=== PATIENT | male | born 1940 | race Caucasian/White ===

== ENCOUNTER 2022-04-03 09:27 | Observation (INO) | payer MEDICARE, OTHER ==
--- NOTE | 2022-04-03 09:29 | ERPHSYRPT ---
- History of Present Illness Time Seen by Provider: 04/03/22 09:29 Source: patient, family Exam Limitations: no limitations Physician History: This is an 81-year-old white male patient who moved here at the beginning of March from [place] where he was living in a trailer. He said the trailer was above the septic tank region and was exposed to mold. Patient states his breathing has not been good for several weeks but has worsened over the last 2 to 3 weeks since he moved in with his daughter locally. He has no local physician. He has been prescribed an albuterol inhaler which she has not filled yet. He denies a diagnosis of asthma or COPD. He does not use home O2. He arrives from home to the emergency department with a room air oxygenation level of 88%. He denies chest pain. He denies abdominal pain. He has had no nausea vomiting or diarrhea symptoms. He has not had a fever. Timing/Duration: gradual onset, worse Activities at Onset: none Severity of Dyspnea-Max: moderate Severity of Dyspnea-Current: moderate Possible Cause: occasional episodes Modifying Factors: Improves With: exertion Associated Symptoms: wheezing, heart racing, No chest pain/discomfort Allergies/Adverse Reactions: Influenza Virus Vaccines Allergy (Verified 04/03/22 09:29) Home Medications: Albuterol Sulfate [Albuterol Sulfate Hfa] 2 puff PO Q4H PRN PRN 04/03/22 [History] Aspirin EC 81 mg [Ecotrin 81 mg] 1 tab PO DAILY 04/03/22 [History] Hydrocodone/Acetaminophen [Hydrocodone-Acetamin 10-325 mg] 1 tab PO QID 04/03/22 [History] Terazosin HCl 1 cap PO DAILY 04/03/22 [History] Trazodone HCl 50 mg [Desyrel 50 mg] 1 tab PO HS 04/03/22 [History] Travel Risk - International Travel Have you traveled outside of the country in past 3 weeks: No - Coronavirus Screening Are you exhibiting any of the following symptoms?: Yes Symptoms: Shortness of Breath Close contact with a COVID-19 positive Pt in past 14-21 Days: No - Review of Systems Constitutional: No Symptoms Eyes: No Symptoms Ears, Nose, & Throat: No Symptoms Respiratory: Dyspnea, Wheezing Cardiac: No Symptoms Abdominal/Gastrointestinal: No Symptoms Genitourinary Symptoms: No Symptoms Musculoskeletal: No Symptoms Skin: No Symptoms Neurological: No Symptoms Psychological: No Symptoms Endocrine: No Symptoms Hematologic/Lymphatic: No Symptoms Immunological/Allergic: No Symptoms All Other Systems: Reviewed and Negative - Past Medical History Pertinent Past Medical History: Yes - Past Surgical History Past Surgical History: Yes - Nursing Vital Signs Nursing Vital Signs: Initial Vital Signs Temperature 97.8 F 04/03/22 09:34 Pulse Rate 104 H 04/03/22 09:34 Respiratory Rate 29 H 04/03/22 09:34 Blood Pressure 196/82 04/03/22 09:34 O2 Sat by Pulse Oximetry 97 04/03/22 09:34 Pain Scale Pain Intensity 0 - Physical Exam General Appearance: mild distress, alert, anxiety Eye Exam: PERRL/EOMI, eyes nml inspection Ears, Nose, Throat Exam: hearing grossly normal, normal ENT inspection, normal pharynx Neck Exam: normal inspection, non-tender, supple, full range of motion Respiratory Exam: respiratory distress (Bilateral diffuse mild), airway intact, diminished breath sounds (Bilateral), wheezing, No chest tenderness Cardiovascular/Chest Exam: tachycardia Abdominal/Gastrointestinal Exam: soft, normal bowel sounds, No tenderness Rectal Exam: not done Extremity Exam: non-tender, normal range of motion, normal inspection, normal capillary refill, no calf tenderness, no pedal edema, pelvis stable Neurologic Exam: alert, oriented x 3, cooperative, optometry teacher II-XII nml as tested, normal mood/affect, nml cerebellar function, nml station & gait, sensation nml Skin Exam: normal color, warm, dry Lymphatic Exam: No adenopathy SpO2 Interpretation: normal O2 Delivery: Room Air - Course Nursing assessment & vital signs reviewed: Yes EKG Interpreted by Me: RATE ([id number]), Sinus Tach, NORMAL AXIS, NORMAL INTERVALS, NORMAL QRS, Non-specific ST Changes, Other (Abnormal inferior Q waves present. No acute ischemic changes. There are no comparison twelve-lead EKGs available) Ordered Tests: Active Orders 24 hr Category Date Time Status Parts Interpreter STAT Care 04/03/22 09:38 Active EKG-ER Only STAT Care 04/03/22 09:37 Active IV Insertion STAT Care 04/03/22 09:37 Active IV Insertion-2nd Peripheral STAT Care 04/03/22 11:02 Active Pulse Oximetry (ED) STAT Care 04/03/22 09:37 Active CHEST 1 VIEW (PORTABLE) Stat Exams 04/03/22 09:37 Completed CHEST WITH CONTRAST [CT] Stat Exams 04/03/22 10:28 Completed ABG [ARTERIAL BLOOD GASES] Stat Lab 04/03/22 11:06 Completed ARTERIAL BLOOD GASES Stat Lab 04/03/22 09:38 Completed BLOOD CULTURE Stat Lab 04/03/22 09:55 Received CBC W DIFF Stat Lab 04/03/22 09:37 Completed CMP Stat Lab 04/03/22 09:40 Completed CULTURE,SPUTUM Stat Lab 04/03/22 10:53 Ordered D-DIMER QUANTITATIVE Stat Lab 04/03/22 09:40 Completed Lactic Acid Stat Lab 04/03/22 09:38 Completed Lactic Acid Stat Lab 04/03/22 11:06 Completed NT PRO BNP Stat Lab 04/03/22 09:40 Completed PROTIME WITH INR Stat Lab 04/03/22 09:40 Completed TROPONIN Q4H Lab 04/03/22 09:40 Completed TROPONIN Q4H Lab 04/03/22 12:15 Completed TROPONIN Q4H Lab 04/03/22 17:45 Ordered BiPap/CPAP STAT RT 04/03/22 12:02 Active Medication Summary Discontinued Medications Generic Name Dose Route Start Last Admin Trade Name Freq PRN Reason Stop Dose Admin Albuterol Sulfate Confirm 04/03/22 10:57 Albuterol Sulfate 2.5 Mg/3 Ml Neb Administered 04/03/22 10:58 Dose 2.5 mg IH .STK-MED ONE Albuterol Sulfate 2.5 mg 04/03/22 11:00 04/03/22 12:03 Albuterol Sulfate 2.5 Mg/3 Ml Neb 04/03/22 11:01 2.5 mg STAT ONE Administration Albuterol/Ipratropium Confirm 04/03/22 09:34 Ipratropium/Albuterol Sulfate 3 Ml Ampul.Neb Administered 04/03/22 09:35 Dose 3 ml IH .STK-MED ONE Albuterol/Ipratropium 3 ml 04/03/22 09:35 04/03/22 09:35 Ipratropium/Albuterol Sulfate 3 Ml Ampul.Neb IH 04/03/22 09:36 3 ml STAT ONE Administration Methylprednisolone Sodium 0 mg 04/03/22 09:38 04/03/22 09:57 Succinate 125 mg/ Sterile IV 04/03/22 09:39 125 mg Water 2 ml STAT ONE Administration Methylprednisolone Sodium 0 mg 04/03/22 11:02 04/03/22 11:03 Succinate 125 mg/ Sterile IV 04/03/22 11:03 125 mg Water 2 ml STAT ONE Administration Furosemide 40 mg 04/03/22 12:05 04/03/22 12:26 Furosemide 40 Mg/4 Ml Vial IV 04/03/22 12:06 40 mg STAT ONE Administration Furosemide Confirm 04/03/22 12:25 Furosemide 40 Mg/4 Ml Vial Administered 04/03/22 12:26 Dose 40 mg .ROUTE .STK-MED ONE Meropenem 1 gm/ Sodium 100 mls @ 200 mls/hr 04/03/22 10:27 04/03/22 10:36 Chloride IV 04/03/22 10:56 200 mls/hr STAT ONE Administration Sodium Chloride 500 mls @ 500 mls/hr 04/03/22 10:29 04/03/22 10:41 Sodium Chloride 0.9% 500 Ml IV 04/03/22 11:28 Not Given .Q1H ONE Sodium Chloride 1,000 mls @ 999 mls/hr 04/03/22 10:30 04/03/22 11:39 Sodium Chloride 0.9% 1000 Ml IV 04/03/22 11:30 Infused .Q1H1M STA Infusion Sodium Chloride Confirm 04/03/22 10:33 Sodium Chloride 100ml Mini-Bag Plus Administered 04/03/22 10:34 Dose 100 mls @ ud IV .STK-MED ONE Sodium Chloride Confirm 04/03/22 10:33 Sodium Chloride 0.9% 1000 Ml Administered 04/03/22 10:34 Dose 1,000 mls @ ud .ROUTE .STK-MED ONE Meropenem Confirm 04/03/22 10:33 Meropenem 1 Gm Vial Administered 04/03/22 10:34 Dose 1 gm IV .STK-MED ONE Methylprednisolone Sodium Succinate Confirm 04/03/22 09:54 Methylprednis Sod Succ 125 Mg/2 Ml Vial Administered 04/03/22 09:55 Dose 125 mg .ROUTE .STK-MED ONE Methylprednisolone Sodium Succinate Confirm 04/03/22 11:01 Methylprednis Sod Succ 125 Mg/2 Ml Vial Administered 04/03/22 11:02 Dose 125 mg .ROUTE .STK-MED ONE Sterile Water Confirm 04/03/22 09:54 Water For Injection,Sterile 10 Ml Vial Administered 04/03/22 09:55 Dose 10 ml IJ .STK-MED ONE Sterile Water Confirm 04/03/22 11:01 Water For Injection,Sterile 10 Ml Vial Administered 04/03/22 11:02 Dose 10 ml IJ .STK-MED ONE Lab/Rad Data: Laboratory Result Diagrams 04/03/22 09:37 04/03/22 09:40 Laboratory Results 04/03/22 04/03/22 04/03/22 Range/Units 12:15 11:06 09:57 WBC (4.0-10.5) x10^3/uL RBC (4.1-5.6) x10^6/uL Hgb (12.5-18.0) g/dL Hct (42-50) % MCV (78-100) fL MCH (26-32) pg MCHC (32-36) g/dL RDW (11.5-14.0) % Plt Count (150-450) x10^3/uL MPV (7.5-11.0) fL Gran % (36.0-66.0) % Immature Gran % (Auto) (0.00-0.4) % Nucleat RBC Rel Count (0.00-0.1) % Eos # (Auto) (0-0.5) x10^3/uL Immature Gran # (Auto) (0.00-0.03) x10^3u/L Absolute Lymphs (auto) (1.0-4.6) x10^3/uL Absolute Monos (auto) (0.0-1.3) x10^3/uL Absolute Nucleated RBC (0.00-0.01) x10^3u/L Lymphocytes % (24.0-44.0) % Monocytes % (0.0-12.0) % Eosinophils % (0.00-5.0) % Basophils % (0.0-0.4) % Absolute Granulocytes (1.4-6.9) x10^3/uL Basophils # (0-0.4) x10^3/uL PT (9.4-12.5) SECONDS INR (0.8-3.0) D-Dimer (0.0-0.50) mg/L Puncture Site LEFT BRACHIAL pCO2 41 (35-45) mmHg pO2 157 H* (75-100) mmHg Base Excess -4.7 L (-2.0-2.0) O2 Saturation 98.2 (94-100) g/dF ABG pH 7.32 L (7.35-7.45) ABG HCO3 21.1 L (22-28) ABG O2 Sat (Measured) 99.3 (95-100) % Norman Test NOT APPLICABLE A-a Gradient 48 a/A Ratio 0.77 Hemoglobin 10.1 Carboxyhemoglobin 0.8 (0.0-6.9) % THgb Methemoglobin 0.3 L (1.4-1.5) % Potassium 4.3 (3.5-5.1) Temperature 37.0 C POC O2 Flow Rate 36 % Sodium (137-145) mmol/L Chloride (98-107) mmol/L Carbon Dioxide (22-30) mmol/L Anion Gap (5-15) MEQ/L BUN (9-20) mg/dL Creatinine (0.66-1.25) mg/dL Estimated GFR ML/MIN Glucose (74-106) mg/dL Lactic Acid 2.0 (0.4-2.0) Calcium (8.4-10.2) mg/dL Total Bilirubin (0.2-1.3) mg/dL AST (17-59) U/L ALT (0-50) U/L Alkaline Phosphatase (38-126) U/L Troponin I 0.056 H* (0.000-0.034) ng/mL NT-Pro-B Natriuret Pep (0-1800) pg/mL Serum Total Protein (6.3-8.2) g/dL Albumin (3.5-5.0) g/dL Influenza Type A Ag NEGATIVE (NEGATIVE) Influenza Type B Ag NEGATIVE (NEGATIVE) RSV (PCR) NEGATIVE (Negative) SARS-CoV-2 (PCR) NEGATIVE (NEGATIVE) 04/03/22 04/03/22 04/03/22 Range/Units 09:40 09:40 09:40 WBC (4.0-10.5) x10^3/uL RBC (4.1-5.6) x10^6/uL Hgb (12.5-18.0) g/dL Hct (42-50) % MCV (78-100) fL MCH (26-32) pg MCHC (32-36) g/dL RDW (11.5-14.0) % Plt Count (150-450) x10^3/uL MPV (7.5-11.0) fL Gran % (36.0-66.0) % Immature Gran % (Auto) (0.00-0.4) % Nucleat RBC Rel Count (0.00-0.1) % Eos # (Auto) (0-0.5) x10^3/uL Immature Gran # (Auto) (0.00-0.03) x10^3u/L Absolute Lymphs (auto) (1.0-4.6) x10^3/uL Absolute Monos (auto) (0.0-1.3) x10^3/uL Absolute Nucleated RBC (0.00-0.01) x10^3u/L Lymphocytes % (24.0-44.0) % Monocytes % (0.0-12.0) % Eosinophils % (0.00-5.0) % Basophils % (0.0-0.4) % Absolute Granulocytes (1.4-6.9) x10^3/uL Basophils # (0-0.4) x10^3/uL PT 10.8 (9.4-12.5) SECONDS INR 1.02 (0.8-3.0) D-Dimer 2.45 H* (0.0-0.50) mg/L Puncture Site pCO2 (35-45) mmHg pO2 (75-100) mmHg Base Excess (-2.0-2.0) O2 Saturation (94-100) g/dF ABG pH (7.35-7.45) ABG HCO3 (22-28) ABG O2 Sat (Measured) (95-100) % Norman Test A-a Gradient a/A Ratio Hemoglobin Carboxyhemoglobin (0.0-6.9) % THgb Methemoglobin (1.4-1.5) % Potassium 4.3 (3.5-5.1) Temperature C POC O2 Flow Rate % Sodium 137 (137-145) mmol/L Chloride 105 (98-107) mmol/L Carbon Dioxide 21 L (22-30) mmol/L Anion Gap 16.2 H (5-15) MEQ/L BUN 25 H (9-20) mg/dL Creatinine 1.18 (0.66-1.25) mg/dL Estimated GFR > 60.0 ML/MIN Glucose 114 H (74-106) mg/dL Lactic Acid (0.4-2.0) Calcium 8.4 (8.4-10.2) mg/dL Total Bilirubin 0.60 (0.2-1.3) mg/dL AST 40 (17-59) U/L ALT 24 (0-50) U/L Alkaline Phosphatase 72 (38-126) U/L Troponin I 0.060 H* (0.000-0.034) ng/mL NT-Pro-B Natriuret Pep 493 (0-1800) pg/mL Serum Total Protein 8.1 (6.3-8.2) g/dL Albumin 4.4 (3.5-5.0) g/dL Influenza Type A Ag (NEGATIVE) Influenza Type B Ag (NEGATIVE) RSV (PCR) (Negative) SARS-CoV-2 (PCR) (NEGATIVE) 04/03/22 04/03/22 Range/Units 09:38 09:37 WBC 9.3 (4.0-10.5) x10^3/uL RBC 4.39 (4.1-5.6) x10^6/uL Hgb 10.0 L (12.5-18.0) g/dL Hct 33.5 L (42-50) % MCV 76.3 L (78-100) fL MCH 22.8 L (26-32) pg MCHC 29.9 L (32-36) g/dL RDW 17.2 H (11.5-14.0) % Plt Count 245 (150-450) x10^3/uL MPV 10.5 (7.5-11.0) fL Gran % 63.3 (36.0-66.0) % Immature Gran % (Auto) 0.4 (0.00-0.4) % Nucleat RBC Rel Count 0.0 (0.00-0.1) % Eos # (Auto) 1.28 H (0-0.5) x10^3/uL Immature Gran # (Auto) 0.04 H (0.00-0.03) x10^3u/L Absolute Lymphs (auto) 1.34 (1.0-4.6) x10^3/uL Absolute Monos (auto) 0.69 (0.0-1.3) x10^3/uL Absolute Nucleated RBC 0.00 (0.00-0.01) x10^3u/L Lymphocytes % 14.5 L (24.0-44.0) % Monocytes % 7.5 (0.0-12.0) % Eosinophils % 13.8 H (0.00-5.0) % Basophils % 0.5 (0.0-0.4) % Absolute Granulocytes 5.86 (1.4-6.9) x10^3/uL Basophils # 0.05 (0-0.4) x10^3/uL PT (9.4-12.5) SECONDS INR (0.8-3.0) D-Dimer (0.0-0.50) mg/L Puncture Site LEFT RADIAL pCO2 41 (35-45) mmHg pO2 120 H (75-100) mmHg Base Excess -4.1 L (-2.0-2.0) O2 Saturation 97.4 (94-100) g/dF ABG pH 7.33 L (7.35-7.45) ABG HCO3 21.6 L (22-28) ABG O2 Sat (Measured) 98.4 (95-100) % Norman Test YES A-a Gradient 85 a/A Ratio 0.59 Hemoglobin 10.7 Carboxyhemoglobin 0.6 (0.0-6.9) % THgb Methemoglobin 0.4 L (1.4-1.5) % Potassium 4.2 (3.5-5.1) Temperature 37.0 C POC O2 Flow Rate 36 % Sodium (137-145) mmol/L Chloride (98-107) mmol/L Carbon Dioxide (22-30) mmol/L Anion Gap (5-15) MEQ/L BUN (9-20) mg/dL Creatinine (0.66-1.25) mg/dL Estimated GFR ML/MIN Glucose (74-106) mg/dL Lactic Acid 3.1 H (0.4-2.0) Calcium (8.4-10.2) mg/dL Total Bilirubin (0.2-1.3) mg/dL AST (17-59) U/L ALT (0-50) U/L Alkaline Phosphatase (38-126) U/L Troponin I (0.000-0.034) ng/mL NT-Pro-B Natriuret Pep (0-1800) pg/mL Serum Total Protein (6.3-8.2) g/dL Albumin (3.5-5.0) g/dL Influenza Type A Ag (NEGATIVE) Influenza Type B Ag (NEGATIVE) RSV (PCR) (Negative) SARS-CoV-2 (PCR) (NEGATIVE) - Progress Progress: improved, re-examined Air Movement: fair Progress Note: 04/03/22 10:22 Chest x-ray shows mild left base interstitial alveolar opacities with tiny effusion. 04/03/22 11:04 Medical decision making: This patient's symptoms of shortness of breath suddenly worsened. His oxygenation on 4 L did not change much but he became a little more tachycardic. And symptomatically he felt more short of breath. Repeat twelve-lead EKG shows sinus tachycardia at 112. There is borderline ST depression in anterior lateral leads which is unchanged from the prior EKG. The Q waves have resolved and there is borderline prolonged QT interval present. There is no evidence of ST elevation. Patient does not complain of any chest pain. We repeated the DuoNeb and during the treatment his heart rate came down into the 80s and symptomatically his symptoms have improved. We are repeating a dose of 125 mg of intravenous Solu-Medrol. 04/03/22 12:03 CTA of chest is negative for pulmonary embolus. There is no evidence of acute cardiopulmonary abnormalities. There is evidence of extensive pulmonary emphysema. 04/03/22 13:23 Medical decision making: This patient was hypoxic when he came into the hospital. His CTA shows extensive pulmonary emphysema. I think his cardiac enzymes are secondary more to cardiac strain rather than coronary artery disease and ischemia. I spoke with Dr. Guerrero who is covering for unassigned patients. He accepts him for placement in observation in the hospital. We will place him in observation on telemetry and provide him with nebulizer treatments, Solu- Medrol intravenously, intravenous antibiotics and repeat labs in the morning. I will also put him on low-dose Lovenox. Blood Culture(s) Obtained: Yes Antibiotics given: Yes Discussed with : Mariela Counseled pt/family regarding: lab results, diagnosis, rad results - Departure Departure Disposition: Transfer Clinical Impression: Sepsis, Pulmonary infiltrate in left lung on chest x-ray, Sinus tachycardia, Elevated troponin, Hypoxia, COPD exacerbation Condition: Fair Critical Care Time: Yes Critical Care Time(excluding separately billable procedures): Critical 30-74 mins (40 minutes) Referrals: DOCTOR,NO FAMILY [Primary Care Provider] - Follow up/PCP as directed Instructions: Chronic Obstructive Pulmonary Disease
[2022-04-03] MEDS ORDERED: DUONEB 0.5-3 MG/3 ml Neb IH ONE ×2 (09:34→09:35)
[2022-04-03] MEDS ORDERED: solu-MEDROL 125 MG, Sterile H2O 10 ml 2 ML IV ONE ×4 (09:38→11:02)
[2022-04-03 09:40] LABS: A-aADO2 85; ABG HEMOGLOBIN 10.7; ABG POTASSIUM 4.2 (3.5-5.1); ABG SITE LEFT RADIAL; ALLEN TEST OK? YES; ARTERIAL BLD GAS O2 SATURATION 98.4 % (95-100); ARTERIAL BLOOD GAS BASE EXCESS -4.1 (-2.0-2.0); ARTERIAL BLOOD GAS FIO2 36 %; ARTERIAL BLOOD GAS PCO2 41 mmHg (35-45); ARTERIAL BLOOD GAS PO2 120 mmHg (75-100); ARTERIAL BLOOD GAS pH 7.33 (7.35-7.45); CARBOXYHEMOGLOBIN 0.6 % THgb (0.0-6.9); HCO3- 21.6 (22-28); HGB O2 SAT 97.4 g/dF (94-100); Lactic Acid 3.1 (0.4-2.0); Methhemoglobin 0.4 % (1.4-1.5)
[2022-04-03] MEDS ORDERED: Sterile H2O 10 ml IJ ONE ×2 (09:54→11:01)
[2022-04-03] MEDS ORDERED: solu-MEDROL ONE ×2 (09:54→11:01)
[2022-04-03 09:58] LABS: Absolute Neutrophil Ct (ANC) 5.86 x10^3/uL (1.4-6.9); Basophil (Absolute #) 0.05 x10^3/uL (0-0.4); Eosinophil % 13.8 % (0.00-5.0); Eosinophil (Absolute #) 1.28 x10^3/uL (0-0.5); Hematocrit 33.5 % (42-50); Lymphocyte (Absolute #) 1.34 x10^3/uL (1.0-4.6); Lymphocytes % 14.5 % (24.0-44.0); Mean Cell Volume 76.3 fL (78-100); Mean Corpuscular Hemoglobin 22.8 pg (26-32); Mean Corpuscular Hgb Concent. 29.9 g/dL (32-36); Mean Platelet Volume 10.5 fL (7.5-11.0); Monocyte (Absolute #) 0.69 x10^3/uL (0.0-1.3); Monocytes % 7.5 % (0.0-12.0); Neutrophil % 63.3 % (36.0-66.0); Platelet Count 245 x10^3/uL (150-450); Red Blood Count 4.39 x10^6/uL (4.1-5.6); Red Cell Distribution Width 17.2 % (11.5-14.0); White Blood Count 9.3 x10^3/uL (4.0-10.5)
--- NOTE | 2022-04-03 10:19 | XRAY ---
Indication: Cough and short of breath. Comparison: None Portable chest demonstrates mild left base interstitial alveolar opacities with tiny effusion. Left infrahilar sub-some atelectasis/scarring and tiny scattered calcified granulomas. Heart not enlarged. Bony thorax intact with osteopenia and cervical thoracic junction fusion hardware.
[2022-04-03 10:20] LABS: INR 1.02 (0.8-3.0); PROTIME 10.8 SECONDS (9.4-12.5)
[2022-04-03 10:21] LABS: ALBUMIN 4.4 g/dL (3.5-5.0); ALKALINE PHOSPHATASE 72 U/L (38-126); ANION GAP 16.2 MEQ/L (5-15); BLOOD UREA NITROGEN 25 mg/dL (9-20); CHLORIDE 105 mmol/L (98-107); Calcium 8.4 mg/dL (8.4-10.2); Carbon Dioxide 21 mmol/L (22-30); Creatinine 1 1.18 mg/dL (0.66-1.25); EST GLOMERULAR FILTRATION RATE > 60.0 ML/MIN; Glucose 114 mg/dL (74-106); NT PRO BNP 493 pg/mL (0-1800); Potassium 4.3 mmol/L (3.5-5.1); SGOT/AST 40 U/L (17-59); SGPT/ALT 24 U/L (0-50); SODIUM 137 mmol/L (137-145); Total Protein 8.1 g/dL (6.3-8.2)
[2022-04-03 10:24] LABS: D-DIMER QUANTITATIVE 2.45 mg/L (0.0-0.50)
[2022-04-03] MEDS ORDERED: Merrem 1 GM in Sodium Chloride 100ML MINI-BAG PLUS 100 ML IV ONE (10:27)
[2022-04-03] MEDS ORDERED: Sodium Chloride 0.9% 500 ML 500 ML IV ONE (10:29)
[2022-04-03] MEDS ORDERED: Sodium Chloride 0.9% 1000 ML 1,000 ML IV STA (10:30)
[2022-04-03] MEDS ORDERED: Merrem IV ONE (10:33)
[2022-04-03] MEDS ORDERED: Sodium Chloride 100ML MINI-BAG PLUS 100 ML IV ONE (10:33)
[2022-04-03] MEDS ORDERED: Sodium Chloride 0.9% 1000 ML 1,000 ML ONE (10:33)
[2022-04-03 10:39] LABS: INFLUENZA A NEGATIVE (NEGATIVE); INFLUENZA B NEGATIVE (NEGATIVE); RESPIRATORY SYNCTIAL VIRUS NEGATIVE (Negative); SARS-CoV-2 Xpert Express NEGATIVE (NEGATIVE)
[2022-04-03] MEDS ORDERED: PROVENTIL 2.5 MG/3 ML NEB IH ONE ×2 (10:57→11:00)
[2022-04-03 11:07] LABS: A-aADO2 48; ABG HEMOGLOBIN 10.1; ABG POTASSIUM 4.3 (3.5-5.1); ARTERIAL BLD GAS O2 SATURATION 99.3 % (95-100); ARTERIAL BLOOD GAS BASE EXCESS -4.7 (-2.0-2.0); ARTERIAL BLOOD GAS FIO2 36 %; ARTERIAL BLOOD GAS PCO2 41 mmHg (35-45); ARTERIAL BLOOD GAS PO2 157 mmHg (75-100); ARTERIAL BLOOD GAS pH 7.32 (7.35-7.45); CARBOXYHEMOGLOBIN 0.8 % THgb (0.0-6.9); HCO3- 21.1 (22-28); HGB O2 SAT 98.2 g/dF (94-100); Methhemoglobin 0.3 % (1.4-1.5)
[2022-04-03 11:08] LABS: ABG SITE LEFT BRACHIAL
--- NOTE | 2022-04-03 11:56 | XRAY ---
Indication: Short of breath. Elevated d-dimer. Pulmonary was. Multiple contiguous axial images obtained through the chest using 80 cc Isovue 370 contrast and pulmonary embolus protocol. Comparison: None Good opacification of the pulmonary arteries to include the lumbar and segmental branches. No pulmonary embolus. Heart not enlarged. Aorta is mildly arteriosclerotic without aneurysm/dissection. Tiny right hilar calcified nodes. No pathologic mediastinal/hilar lymphadenopathy. Small hiatal hernia. Lungs demonstrates diffuse pulmonary emphysema with scattered bilateral peripheral fibrosis/scarring and bibasilar subpleural cystic changes. A few right lung calcified granulomas. No suspicious pulmonary mass, infiltrate, or effusion. Bony thorax intact with osteopenia and moderate degenerative changes throughout the spine. Limited upper abdomen including adrenal glands are unremarkable. Impression: 1. Negative pulmonary embolus. No acute cardiopulmonary abnormalities. 2. Extensive pulmonary emphysema with scattered fibrosis/scarring and old granulomatous disease. 3. Incidental osteopenia, multilevel degenerative spondylosis, and small hiatal hernia.
[2022-04-03] MEDS ORDERED: Lasix 40 MG/4 ML IV ONE (12:05)
[2022-04-03] MEDS ORDERED: Lasix 40 MG/4 ML ONE (12:25)
[2022-04-03] MEDS ORDERED: Zofran 4 MG/2 ML VIAL IV PRN (14:22)
[2022-04-03] MEDS ORDERED: TYLENOL 325 MG PO PRN (14:22)
[2022-04-03] MEDS ORDERED: VENTOLIN COMMON CANISTER IH PRN (15:35)
[2022-04-03] MEDS: Zithromax 500 MG/ 250 ML NaCl Premix 500 MG/250 ML IVPB IV SCH (16:23)
[2022-04-03] MEDS: ROCEPHIN 1 Gm-D5w 50 ml Bag** 1 G/50 ML IVPB IV SCH (16:23)
[2022-04-03] MEDS: HYDROCODONE-ACETAMIN 10-325 MG PO SCH ×2 (16:23→21:09)
[2022-04-03] MEDS: ENOXAPARIN SODIUM SQ SCH (16:23)
[2022-04-03] MEDS: Tums EX 750 MG PO PRN (17:39)
[2022-04-03] MEDS: DUONEB 0.5-3 MG/3 ml Neb IH SCH (18:56)
[2022-04-03] MEDS: DESYREL 50 MG PO SCH (21:09)
[2022-04-03] MEDS: solu-MEDROL 80 MG, Sterile H2O 10 ml 2 ML IV SCH ×2 (21:10)
[2022-04-04] MEDS: DUONEB 0.5-3 MG/3 ml Neb IH SCH ×4 (01:21→17:51)
[2022-04-04 04:55] LABS: Absolute Neutrophil Ct (ANC) 5.52 x10^3/uL (1.4-6.9); Basophil (Absolute #) 0.01 x10^3/uL (0-0.4); Eosinophil % 0.2 % (0.00-5.0); Eosinophil (Absolute #) 0.01 x10^3/uL (0-0.5); Hematocrit 30.6 % (42-50); Lymphocyte (Absolute #) 0.76 x10^3/uL (1.0-4.6); Lymphocytes % 11.5 % (24.0-44.0); Mean Cell Volume 76.7 fL (78-100); Mean Corpuscular Hemoglobin 22.6 pg (26-32); Mean Corpuscular Hgb Concent. 29.4 g/dL (32-36); Mean Platelet Volume 10.2 fL (7.5-11.0); Monocyte (Absolute #) 0.28 x10^3/uL (0.0-1.3); Monocytes % 4.2 % (0.0-12.0); Neutrophil % 83.4 % (36.0-66.0); Platelet Count 234 x10^3/uL (150-450); Red Blood Count 3.99 x10^6/uL (4.1-5.6); Red Cell Distribution Width 17.6 % (11.5-14.0); White Blood Count 6.6 x10^3/uL (4.0-10.5)
[2022-04-04] MEDS: solu-MEDROL 80 MG, Sterile H2O 10 ml 2 ML IV SCH ×6 (05:11→21:02)
[2022-04-04 05:26] LABS: ALBUMIN 4.1 g/dL (3.5-5.0); ANION GAP 11.1 MEQ/L (5-15); BILIRUBIN,TOTAL 0.3 mg/dL (0.2-1.3); Calcium 8.4 mg/dL (8.4-10.2); Creatinine 1 1.33 mg/dL (0.66-1.25); EST GLOMERULAR FILTRATION RATE 54.6 ML/MIN; Potassium 4.5 mmol/L (3.5-5.1); Total Protein 7.4 g/dL (6.3-8.2)
[2022-04-04] MEDS: Zithromax 500 MG/ 250 ML NaCl Premix 500 MG/250 ML IVPB IV SCH (08:45)
[2022-04-04] MEDS ORDERED: TERAZOSIN HCL 2 MG PO SCH (10:00)
[2022-04-04] MEDS ORDERED: HYTRIN 1 MG PO SCH (10:00)
[2022-04-04] MEDS ORDERED: ECOTRIN 81 MG PO SCH (10:00)
[2022-04-04] MEDS: ENOXAPARIN SODIUM SQ SCH (10:56)
[2022-04-04] MEDS: ROCEPHIN 1 Gm-D5w 50 ml Bag** 1 G/50 ML IVPB IV SCH (10:56)
[2022-04-04] MEDS: HYDROCODONE-ACETAMIN 10-325 MG PO SCH ×4 (10:56→21:02)
--- NOTE | 2022-04-04 11:56 | PCM.HP ---
History of Present Illness - Chief Complaint Chief Complaint: sepsis History of Present Illness: is a 81 year old male pt with no local MD and PMHx COPD who was admitted through ER with sepsis, PNA ([place]), COPD exac, and elevated troponin. SOB had increased in ER; He was given solumedrol 125 x 2 and duonebs with improvement. Initial troponin was elevated but has trended somewhat down. CT chest neg for PE, but with extensive emphysema. Per ER note pt not aware of COPD dx. Had been prescribed albuterol at home but apparently had not filled it. Pt is here with daughter and son in law today. He moved here this month from [place]; there was some concern about mold at his previous home. He has been sick about 4-6 weeks, but really short of breath for the past 2days. SOB even at rest; prod yellow sputum. Subj fevers/sweats. Presyncope x 2-3. He was given IV lasix in ER with good result. BNP was 493 at admission and 1690 today. - Review of Systems Constitutional: Fever Respiratory: Cough, Short Of Breath Cardiac: Edema (better after lasix) Abdominal/Gastrointestinal: Abdominal Pain (with coughing, RLQ, 10/10), Diarrhea (in ER after taking some meds) Neurological: Dizziness, Other (presyncope) Medications & Allergies Home Medications: Home Medication List Albuterol Sulfate [Albuterol Sulfate Hfa] 2 puff PO Q4H PRN PRN 04/03/22 [History Confirmed 04/03/22] Aspirin EC 81 mg [Ecotrin 81 mg] 1 tab PO DAILY 04/03/22 [History Confirmed 04/03/22] Hydrocodone/Acetaminophen [Hydrocodone-Acetamin 10-325 mg] 1 tab PO QID 04/03/22 [History Confirmed 04/03/22] Terazosin HCl 1 cap PO DAILY 04/03/22 [History Confirmed 04/03/22] Trazodone HCl 50 mg [Desyrel 50 mg] 1 tab PO HS 04/03/22 [History Confirmed 04/03/22] Allergies/Adverse Reactions: Allergies Allergy/AdvReac Type Severity Reaction Status Date / Time Influenza Virus Vaccines Allergy Verified 04/03/22 09:29 - Past Medical History Past Medical History: Yes Neurological History: No Pertinent History ENT History: No Pertinent History Cardiac History: Hypertension Respiratory History: Other Endocrine Medical History: No Pertinent History Musculoskelatal History: No Pertinent History GI Medical History: Hernia History: No Pertinent History Pyscho-Social History: No Pertinent History Male Reproductive Disorders: Prostate Problems Comment: Skin CA, insomnia, exposure to mold and sewage in previous living conditions - Past Surgical History Past Surgical History: Yes Neuro Surgical History: No Pertinent History Cardiac History: No Pertinent History, Cardiac Stent Respiratory Surgery: No Pertinent History Genitourinary Surgical Hx: No Pertinent History Musculskeletal Surgical Hx: No Pertinent History Male Surgical History: No Pertinent History Other Surgical History: Back sugery with hardware placed - Social History Smoking Status: Former smoker Exposure to second hand smoke: No Alcohol: None Drug Use: none - Physical Exam Vital Signs: Vital Signs - 24 hr Temp Pulse Resp BP Pulse Ox 04/04/22 08:00 97.5 F 78 18 95 04/04/22 06:57 88 18 99 04/04/22 04:00 97.7 F 95 H 20 104/53 97 04/04/22 01:23 97 H 20 96 04/03/22 23:43 98.5 F 78 22 108/55 98 04/03/22 20:00 100.4 F 89 24 116/56 98 04/03/22 19:03 98 H 24 95 04/03/22 14:33 97.3 F 107 H 20 142/68 96 04/03/22 14:22 100 H 20 96 04/03/22 13:02 97 H 21 148/116 99 04/03/22 12:18 92 H 20 169/89 99 04/03/22 12:02 110 H 32 H 97 General Appearance: severe distress (with coughing, d/t RLQ pain; otherwise not in distress), obese Neurologic Exam: oriented x 3, cooperative Ears, Nose, Throat Exam: moist mucous membranes Neck Exam: normal inspection Respiratory Exam: diminished breath sounds (fair air exchange), No crackles/rales, No rhonchi, No wheezing Cardiovascular Exam: regular rate/rhythm, normal heart sounds, No murmur Gastrointestinal/Abdomen Exam: soft, normal bowel sounds, tenderness (RLQ), No mass, No guarding, No rebound, No hernia Back Exam: normal inspection, No rash Extremity Exam: normal inspection, No pedal edema, No swelling Skin Exam: normal color, warm, dry, No rash Results - Labs Lab/Micro Results: Lab Results-Last 24 Hours 04/03/22 04/03/22 04/04/22 Range/Units 12:15 18:10 04:30 WBC 6.6 (4.0-10.5) x10^3/uL RBC 3.99 L (4.1-5.6) x10^6/uL Hgb 9.0 L (12.5-18.0) g/dL Hct 30.6 L (42-50) % MCV 76.7 L (78-100) fL MCH 22.6 L (26-32) pg MCHC 29.4 L (32-36) g/dL RDW 17.6 H (11.5-14.0) % Plt Count 234 (150-450) x10^3/uL MPV 10.2 (7.5-11.0) fL Gran % 83.4 H (36.0-66.0) % Immature Gran % (Auto) 0.5 H (0.00-0.4) % Nucleat RBC Rel Count 0.0 (0.00-0.1) % Eos # (Auto) 0.01 (0-0.5) x10^3/uL Immature Gran # (Auto) 0.03 (0.00-0.03) x10^3u/L Absolute Lymphs (auto) 0.76 L (1.0-4.6) x10^3/uL Absolute Monos (auto) 0.28 (0.0-1.3) x10^3/uL Absolute Nucleated RBC 0.00 (0.00-0.01) x10^3u/L Lymphocytes % 11.5 L (24.0-44.0) % Monocytes % 4.2 (0.0-12.0) % Eosinophils % 0.2 (0.00-5.0) % Basophils % 0.2 (0.0-0.4) % Absolute Granulocytes 5.52 (1.4-6.9) x10^3/uL Basophils # 0.01 (0-0.4) x10^3/uL Sodium (137-145) mmol/L Potassium (3.5-5.1) mmol/L Chloride (98-107) mmol/L Carbon Dioxide (22-30) mmol/L Anion Gap (5-15) MEQ/L BUN (9-20) mg/dL Creatinine (0.66-1.25) mg/dL Estimated GFR ML/MIN Glucose (74-106) mg/dL Calcium (8.4-10.2) mg/dL Total Bilirubin (0.2-1.3) mg/dL AST (17-59) U/L ALT (0-50) U/L Alkaline Phosphatase (38-126) U/L Troponin I 0.056 H* 0.056 H* (0.000-0.034) ng/mL NT-Pro-B Natriuret Pep (0-1800) pg/mL Serum Total Protein (6.3-8.2) g/dL Albumin (3.5-5.0) g/dL 04/04/22 Range/Units 04:30 WBC (4.0-10.5) x10^3/uL RBC (4.1-5.6) x10^6/uL Hgb (12.5-18.0) g/dL Hct (42-50) % MCV (78-100) fL MCH (26-32) pg MCHC (32-36) g/dL RDW (11.5-14.0) % Plt Count (150-450) x10^3/uL MPV (7.5-11.0) fL Gran % (36.0-66.0) % Immature Gran % (Auto) (0.00-0.4) % Nucleat RBC Rel Count (0.00-0.1) % Eos # (Auto) (0-0.5) x10^3/uL Immature Gran # (Auto) (0.00-0.03) x10^3u/L Absolute Lymphs (auto) (1.0-4.6) x10^3/uL Absolute Monos (auto) (0.0-1.3) x10^3/uL Absolute Nucleated RBC (0.00-0.01) x10^3u/L Lymphocytes % (24.0-44.0) % Monocytes % (0.0-12.0) % Eosinophils % (0.00-5.0) % Basophils % (0.0-0.4) % Absolute Granulocytes (1.4-6.9) x10^3/uL Basophils # (0-0.4) x10^3/uL Sodium 139 (137-145) mmol/L Potassium 4.5 (3.5-5.1) mmol/L Chloride 105 (98-107) mmol/L Carbon Dioxide 28 (22-30) mmol/L Anion Gap 11.1 (5-15) MEQ/L BUN 31 H (9-20) mg/dL Creatinine 1.33 H (0.66-1.25) mg/dL Estimated GFR 54.6 ML/MIN Glucose 162 H (74-106) mg/dL Calcium 8.4 (8.4-10.2) mg/dL Total Bilirubin 0.30 (0.2-1.3) mg/dL AST 38 (17-59) U/L ALT 25 (0-50) U/L Alkaline Phosphatase 65 (38-126) U/L Troponin I (0.000-0.034) ng/mL NT-Pro-B Natriuret Pep 1690 (0-1800) pg/mL Serum Total Protein 7.4 (6.3-8.2) g/dL Albumin 4.1 (3.5-5.0) g/dL Microbiology 04/03/22 10:53 Gram Stain - Final Sputum - Expectorant - Radiology Impressions Radiology Exams & Impressions: Radiology Procedures Category Date Time Status CHEST 1 VIEW (PORTABLE) Stat Exams 04/03/22 09:37 Completed CHEST WITH CONTRAST [CT] Stat Exams 04/03/22 10:28 Completed - Other Procedures and Tests Respiratory Therapy 04/03/22 12:02 BiPap/CPAP ROUTINE 04/03/22 15:28 Oxygen Nasal Cannula 4 lpm Assessment/Plan (1) Sepsis Current Visit: Yes Status: Acute Qualifiers: Sepsis type: sepsis due to unspecified organism Sepsis acute organ dysfunction status: without acute organ dysfunction Qualified Code(s): A41.9 - Sepsis, unspecified organism Assessment & Plan: Had fever to 100.4 here, initial HR 110s and RR 32 (now 95 and 20). On IV fluids; cautiosly because of CHF component (elevated BNP today). (2) Pneumonia Current Visit: Yes Status: Acute Qualifiers: Pneumonia type: due to unspecified organism Laterality: left Lung location: lower lobe of lung Qualified Code(s): J18.9 - Pneumonia, unspecified organism Assessment & Plan: On zithromax and rocephin. Code(s): J18.9 - PNEUMONIA, UNSPECIFIED ORGANISM (3) Abdominal pain Current Visit: Yes Status: Acute Qualifiers: Abdominal location: right lower quadrant Qualified Code(s): R10.31 - Right lower quadrant pain Assessment & Plan: Due to cough. Will try to treat cough (as well as causes for cough - PNA and CHF). Code(s): R10.9 - UNSPECIFIED ABDOMINAL PAIN (4) COPD exacerbation Current Visit: Yes Status: Acute Assessment & Plan: solumedrol 80mg IV q8h. Code(s): J44.1 - CHRONIC OBSTRUCTIVE PULMONARY DISEASE W (ACUTE) EXACERBATION (5) Elevated troponin Current Visit: Yes Status: Acute Assessment & Plan: trending down slightly. I think related to strain from his illness. Code(s): R77.8 - OTHER SPECIFIED ABNORMALITIES OF PLASMA PROTEINS (6) CHF (congestive heart failure) Current Visit: Yes Status: Suspected Qualifiers: Heart failure type: unspecified Heart failure chronicity: unspecified Qualified Code(s): I50.9 - Heart failure, unspecified Assessment & Plan: check echo Code(s): I50.9 - HEART FAILURE, UNSPECIFIED
[2022-04-04] MEDS ORDERED: HYDROCODONE-CHLORPHEN ER SUSP PO PRN (12:04)
[2022-04-04] MEDS ORDERED: Lasix 40 MG/4 ML IV SCH (12:04)
[2022-04-04] MEDS ORDERED: MORPHINE SULFATE 4 MG INJ IV PRN (12:05)
[2022-04-04] MEDS: Tessalon Perles 100 MG PO PRN ×2 (13:23→21:02)
[2022-04-04] MEDS: Mucinex 600MG ER Tabs PO SCH ×2 (13:23→21:02)
[2022-04-04] MEDS ORDERED: solu-MEDROL ONE (20:33)
[2022-04-04] MEDS: DESYREL 50 MG PO SCH (21:02)
[2022-04-04] MEDS: Tums EX 750 MG PO PRN (23:21)
[2022-04-05] MEDS: DUONEB 0.5-3 MG/3 ml Neb IH SCH ×2 (00:53→06:29)
[2022-04-05] MEDS: solu-MEDROL 80 MG, Sterile H2O 10 ml 2 ML IV SCH ×2 (05:10)
[2022-04-05] MEDS: Tums EX 750 MG PO PRN (05:11)
[2022-04-05] MEDS: Tessalon Perles 100 MG PO PRN (05:17)
[2022-04-05 07:16] VITALS: O2SAT 99
--- NOTE | 2022-04-05 09:30 | PCM.DS ---
Discharge Summary Date of Admission: 04/03/22 14:16 Admitting Physician: JACKY HENRIQUEZ Primary Care Provider: NO FAMILY DOCTOR Allergies Allergies Influenza Virus Vaccines Allergy (Verified 04/03/22 09:29) Hospital Summary - Hospital Course Hospital Course: patient admitted with pneumonia ,he is doing well and cough is improved. he has some soreness from coughing, off oxygen and sats are good. he is feeling much better - Vitals & Intake/Output Vital Signs: Vital Signs Temperature 97.5 F 04/05/22 07:15 Pulse Rate 75 04/05/22 07:15 Respiratory Rate 18 04/05/22 07:15 Blood Pressure 97/51 04/05/22 07:15 O2 Sat by Pulse Oximetry 99 04/05/22 07:15 Intake & Output: Intake & Output 04/02/22 04/03/22 04/04/22 04/05/22 11:59 11:59 11:59 11:59 Intake Total 1160 1580 Output Total 150 700 Balance 1010 880 Weight 69.7 kg 75.2 kg 72.1 kg - Lab Result Diagrams: 04/04/22 04:30 04/04/22 04:30 Micro Results-Entire Visit: Microbiology 04/03/22 10:53 Gram Stain - Final Sputum - Expectorant Sputum Culture - Preliminary ORGANISMS ISOLATED ARE CONSISTENT WITH NORMAL RESP TAMIE MODERATE GROWTH, NO PREDOMINANT ORGANISM 04/03/22 09:55 Blood Culture - Preliminary Blood NO GROWTH TO DATE 04/03/22 09:40 Blood Culture - Preliminary Blood NO GROWTH TO DATE - Radiology Exams Ordered Rad Exams-Entire Visit: Radiology Procedures Category Date Time Status CHEST 1 VIEW (PORTABLE) Stat Exams 04/03/22 09:37 Completed CHEST WITH CONTRAST [CT] Stat Exams 04/03/22 10:28 Completed ECHO W/2D AND DOPPLER [US] Routine Exams 04/04/22 13:06 Taken - Procedures and Test Procedures and Tests throughout Hospitalization: Therapy Orders & Screens 04/03/22 12:02 BiPap/CPAP ROUTINE Comment: 04/03/22 14:22 Respiratory Therapy Consult ROUTINE Comment: Reason For Exam: 04/03/22 15:28 Oxygen Nasal Cannula 4 lpm Comment: Diagnosis: sepsis Discharge Exam General Appearance: no apparent distress Neurologic Exam: alert, oriented x 3, cooperative Respiratory Exam: normal breath sounds, diminished breath sounds, prolonged expirations, No respiratory distress, No crackles/rales, No rhonchi, No wheezing Cardiovascular Exam: regular rate/rhythm, normal heart sounds Gastrointestinal/Abdomen Exam: soft, No tenderness, No mass Extremity Exam: normal inspection, normal range of motion Skin Exam: normal color, warm, dry Final Diagnosis/Problem List - Final Discharge Diagnosis/Problem (1) Pneumonia Current Visit: Yes Status: Acute Assessment & Plan: chest ct negative for PE and no significant consolidation is seen, patient is hemodynamically quite stable and no oxygen requirement. I feel he is safe for d ischarge with po abx and he agrees. Code(s): J18.9 - PNEUMONIA, UNSPECIFIED ORGANISM (2) Abdominal pain Current Visit: Yes Status: Acute Code(s): R10.9 - UNSPECIFIED ABDOMINAL PAIN - Discharge Disposition: Home, Self-Care Condition: Fair Prescriptions: New Prednisone 20 mg [Deltasone 20 mg] 20 mg PO UD #18 tablet Albuterol Common Canister [Ventolin Common Canister] 2 puff IH Q4H PRN PRN #1 unit PRN Reason: Shortness Of Breath Doxycycline Hyclate 100 mg [Vibramycin 100 MG] 100 mg PO BID #14 tab Continue Trazodone HCl 50 mg [Desyrel 50 mg] 1 tab PO HS Albuterol Sulfate [Albuterol Sulfate Hfa] 2 puff PO Q4H PRN PRN PRN Reason: Shortness Of Breath Terazosin HCl 1 cap PO DAILY Aspirin EC 81 mg [Ecotrin 81 mg] 1 tab PO DAILY Hydrocodone/Acetaminophen [Hydrocodone-Acetamin 10-325 mg] 1 tab PO QID Follow up with: DOCTOR,NO FAMILY [Primary Care Provider] -
[2022-04-05 12:15] VITALS: BP 171/71; PULSE 74
== END 2022-04-05 12:27 | disposition home or self-care (01) ==
LOC: ED 09:27 → MED SURG 14:16
PROVIDERS: ADMIT General Practice; ATTEND General Practice
DX: J18.9 Pneumonia, unspecified organism (principal); R10.9 Unspecified abdominal pain; A41.9 Sepsis, unspecified organism; J44.1 Chronic obstructive pulmonary disease with (acute) exacerbation; R77.8 Other specified abnormalities of plasma proteins; I10 Essential (primary) hypertension; Z20.828 Contact with and (suspected) exposure to other viral communicable diseases; Z79.899 Other long term (current) drug therapy; Z85.828 Personal history of other malignant neoplasm of skin
CPT/HCPCS: 0241U; 36000; 36415; 36600; 71045; 71260; 80053; 82375; 82803; 83605; 83880; 84484; 85025; 85379; 85610; 87040; 87070; 93005; 93041; 93268; 93306; 94002; 94640; 94760; 96360; 96365; 96374; 96375; 96376; 99285; 99291; G0378; 87077; 87186; J0456; J0696; J1650; J1940; J2930; J7609; A9270-GY